=== PATIENT | male | born 1975 | race Caucasian/White ===

== ENCOUNTER 2017-12-28 10:41 | Emergency (ER) | payer OTHER ==
[~2017-12-28] VITALS: Ht 165.1 cm; Wt 98.9 kg
[2017-12-28 10:42] VITALS: BP 131/91
[2017-12-28] MEDS ORDERED: ceFAZolin 1,000 MG VIAL IM ONE (10:50)
[2017-12-28] MEDS ORDERED: LIDOCAINE/EPI MPF 2%1:200000 10 ML VIAL INJ ONE (10:50)
[2017-12-28] MEDS ORDERED: HYDROcodone/APAP 10/325 MG 1 TAB TAB PO ONE (10:50)
--- NOTE | 2017-12-28 10:50 | NUR ---
42 YO M BIB FRIEND C/O LACERATION TO RIGHT ANTERIOR LOWER LEG; PT STATES HE WAS USING A [employer] AND STATES "IT GOT AWAY FROM ME." APPROXIMATELY 20 MINS AGO; PT AMBULATED TO BED 11; BLEEDING CONTROLLED, CMS INTACT, POPLITEAL/PEDAL PULSES PALPABLE +2. PAIN REPORTED 8/10 THAT RADIATES UP TO R KNEE. TETANUS UTD WITHIN LAST YEAR. NO ACUTE DISTRESS NOTED. XRAY AT BEDSIDE. NO NEW ORDERS AT THIS TIME. PATIENT NEEDS MET. WILL CONTINUE TO MONITOR.
[2017-12-28] MEDS ORDERED: LIDOCAINE/EPI 2% 1:100000 20 ML VIAL INJ ONE (11:01)
[2017-12-28] MEDS ORDERED: BACITRACIN OINT 500 UNITS/GM PKT TP ONE (11:03)
--- NOTE | 2017-12-28 11:25 | NUR ---
Zenaida burgess in ED - 12/28/17 at 1151 by KYLER lee lamar by bedside performing laceration repair. patient tolerated well.
--- NOTE | 2017-12-28 11:51 | NUR ---
er sechrist by bedside performing laceration repair. patient tolerated well.
--- NOTE | 2017-12-28 12:57 | NUR ---
Patient discharged with v/s stable. Written and verbal after care instructions given and explained. Patient alert, oriented and verbalized understanding of instructions. Ambulatory with steady gait. All questions addressed prior to discharge. ID band removed. Patient advised to follow up with PMD. Rx of Keflex and Motrin given. Patient educated on indication of medication including possible reaction and side effects. Opportunity to ask questions provided and answered.
[2017-12-28 12:58] VITALS: BP 113/73
== END 2017-12-28 12:57 | disposition home or self-care (01) ==
LOC: MED 10:41
DX: S81.811A Laceration without foreign body, right lower leg, initial encounter (principal); W22.8XXA Striking against or struck by other objects, initial encounter; Y93.89 Activity, other specified; Y92.89 Other specified places as the place of occurrence of the external cause; Y99.8 Other external cause status
CPT/HCPCS: 12034; 73590; 96372; 99284; J0690; J2001; Q0092